=== PATIENT | male | born 1970 | race Caucasian/White ===

== ENCOUNTER 2019-07-06 13:12 | Emergency (ER) | payer BC ==
[2019-07-06] MEDS ORDERED: KETOROLAC 60 MG/2 ML VIAL IM STA (14:41)
--- NOTE | 2019-07-06 14:46 | ED ---
Back Pain HPI - General Chief Complaint: Back Pain/Injury Stated Complaint: back injury Time Seen by Provider: 07/06/19 13:59 Source: patient Limitations: no limitations - History of Present Illness Initial Comments: Patient is a 49-year-old male presenting to emergency Department with complaints of left low back pain that started yesterday. Patient states he was changing his clothes last night when he felt a twinge in his left lower back. Patient states he was able to move around and had minimal pain last night however the pain woke him up in the middle of night and he was spasming. Patient states today he has been having a hard time walking around and cannot bend over or straighten What Cheer a without increased pain. Patient denies fever, chills, numbness and tingling into his lower extremities, bowel or bladder incontinence. Patient states he's had a history of similar pain since just never been this intense. He denies any other traumas or falls recently. He denies history of lumbar surgeries. Upon arrival to the ER, his vital signs are stable. - Related Data Previous Rx's Medication Instructions Recorded Cyclobenzaprine [Flexeril] 5 mg PO BID #15 tablet 07/06/19 predniSONE 20 mg PO BID 5 Days #10 tab 07/06/19 Allergies Allergy/AdvReac Type Severity Reaction Status Date / Time No Known Allergies Allergy Verified 07/06/19 13:34 Review of Systems ROS Statement: Those systems with pertinent positive or pertinent negative responses have been documented in the HPI. ROS Other: All systems not noted in ROS Statement are negative. Past Medical History Past Medical History: No Reported History History of Any Multi-Drug Resistant Organisms: None Reported Past Surgical History: No Surgical Hx Reported Past Psychological History: No Psychological Hx Reported Smoking Status: Never smoker Past Alcohol Use History: Occasional Past Drug Use History: Marijuana General Exam - General Exam Comments Initial Comments: GENERAL: Well-appearing, well-nourished and in no acute distress. HEAD: Atraumatic, normocephalic. EYES: Pupils equal round and reactive to light, extraocular movements intact, sclera anicteric, conjunctiva are normal. ENT: TMs normal, nares patent, oropharynx clear without exudates. Moist mucous membranes. NECK: Normal range of motion, supple without lymphadenopathy or JVD. LUNGS: Breath sounds clear to auscultation bilaterally and equal. No wheezes rales or rhonchi. HEART: Regular rate and rhythm without murmurs, rubs or gallops. ABDOMEN: Soft, nontender, normoactive bowel sounds. No guarding, no rebound. No masses appreciated. : Deferred EXTREMITIES: Normal range of motion, no pitting or edema. No clubbing or cyanosis. Pain with palpation in the left lumbar paraspinals. Increased pain with trunk flexion and extension. Sensation is equal in bilateral lower extremities. Patient has 5 out of 5 strength in his lower extremities. NEUROLOGICAL: Normal speech, normal gait. PSYCH: Normal mood, normal affect. SKIN: Warm, Dry, normal turgor, no rashes or lesions noted. Limitations: no limitations Course Vital Signs 07/06/19 07/06/19 13:32 14:55 Temperature 98.1 F 98.0 F Pulse Rate 84 76 Respiratory 20 19 Rate Blood Pressure 130/90 127/68 O2 Sat by Pulse 99 99 Oximetry Medical Decision Making - Medical Decision Making Patient is a 49-year-old male presenting with left-sided low back pain that started yesterday. Patient was changing his clothes when the symptoms started. He has a history of chronic low back pain. No history of surgeries. He has no red flag symptoms today and on exam. Patient has been taking Motrin for pain and states it helps some. Patient is able to ambulate. Patient will be given Toradol the ER and given a prescription for a muscle relaxer. He is in agreement this plan of care. If symptoms persist patient will follow up with his PCP. Return parameters were discussed with the patient and he verbalized understanding. Disposition Clinical Impression: Strain of lumbar region Disposition: HOME SELF-CARE Condition: Stable Instructions (If sedation given, give patient instructions): Acute Low Back Pain (ED) Additional Instructions: Please return to the Emergency Department if symptoms worsen or any other concerns. Take muscle relaxer as prescribed. He continue with ibuprofen 600 mg every 8 hours. Follow-up with PCP in 1- 2 weeks if symptoms persist. Prescriptions: Cyclobenzaprine [Flexeril] 5 mg PO BID #15 tablet predniSONE 20 mg PO BID 5 Days #10 tab Is patient prescribed a controlled substance at d/c from ED?: No Referrals: Michelle Harding MD [Primary Care Provider] - 1-2 days
[2019-07-06 15:01] VITALS: BP 127/68; PULSE 76; RESP 19; TEMP 98
== END 2019-07-06 14:55 | disposition home or self-care (01) ==
LOC: EC 13:12
DX: S39.012A Strain of muscle, fascia and tendon of lower back, initial encounter (principal); X50.1XXA Overexertion from prolonged static or awkward postures, initial encounter; Y93.89 Activity, other specified
CPT/HCPCS: 99283; 96372; J1885

== ENCOUNTER 2024-03-14 11:01 | Day surgery (SDC) | payer BC ==
[2024-03-09 15:19] VITALS: BMI 25.7
[~2024-03-14 11:01] MED LIST: HYDROmorphone 0.5 MG/0.5 ML SYRINGE IVP PRN; LIDOCAINE 1% (10MG/ML) FOR IV START INTRADERMA PRN; SCOPOLAMINE 1 MG/72 HR PATCH TRANSDERM ONE; droPERidol 5 MG/2 ML VIAL IVP ONE
[2024-03-14] MEDS: IV FLUID CONTINUATION 1,000 ML IV ONE (11:42)
[2024-03-14] MEDS: LACTATED RINGERS 1,000 ML IV SCH (12:08)
[2024-03-14] MEDS: DEXAMETHASONE SOD PHOSPHATE 4 MG/ML 1 ML VIAL IV ONE (12:09)
[2024-03-14] MEDS: ONDANSETRON 4 MG/2 ML VIAL IVP ONE (12:09)
[2024-03-14] MEDS: MIDAZOLAM 2 MG/2 ML VIAL IV ONE (12:26)
[2024-03-14 12:36] LABS: HCT 45.5 % (39.0-53.0); HGB 16.3 gm/dL (13.0-17.5); MCH 32.5 pg (25.0-35.0); MCHC 35.9 g/dL (31.0-37.0); MCV 90.5 fL (80.0-100.0); Platelet Count 254 k/uL (150-450); RBC 5.03 m/uL (4.30-5.90); RDW 12.2 % (11.5-15.5); WBC 4.8 k/uL (3.8-10.6)
[2024-03-14] MEDS: HEPARIN SODIUM,PORCINE 5,000 UNIT/ML 1 ML VIAL SQ PRN (12:40)
--- NOTE | 2024-03-14 12:44 | P.ANPRN ---
Procedure Note - Anesthesia - Nerve Block Performed Bilateral Erector Spinae Single Time Out Performed: Yes Date of Procedure: 03/14/24 Procedure Start Time: 12:08 Procedure Stop Time: 12:15 Location of Patient: PreOp Indication: Acute Post-Operative Pain, Analgesia, Requested by Surgeon Sedation Type: Sedate with meaningful contact maintained Preparation: Sterile Prep Position: Prone Catheter: None Needle Types: Pajunk Needle Gauge: 21 Ultrasound used to visualize needle placement: Yes Ultrasound used to observe medication spread: Yes Injectate: 0.5% Ropivacaine (see comment for volume) (Ropiv 20ml+Decadron 4mg ---Each side. Needle level T11) Blood Aspirated: No Pain Paresthesia on Injection Noted: No Resistance on Injection: Normal Image Stored and Saved: Yes Events: Uneventful and Well Tolerated
[2024-03-14] MEDS ORDERED: NEOSTIGMINE 1 MG/ML 10 ML VIAL ONE (15:18)
[2024-03-14] MEDS ORDERED: DEXAMETHASONE SOD PHOSPHATE 4 MG/ML 1 ML VIAL ONE (15:18)
[2024-03-14] MEDS ORDERED: PROPOFOL 10 MG/ML 20 ML VIAL IV ONE (15:18)
[2024-03-14] MEDS ORDERED: ROCURONIUM 10 MG/ML (5 ML VIAL) IV ONE (15:18)
[2024-03-14] MEDS ORDERED: HYDROmorphone (PF) 1 MG/ML ONE (15:18)
[2024-03-14] MEDS ORDERED: ROPIVACAINE 5 MG/ML 30 ML VIAL ONE (15:18)
[2024-03-14] MEDS ORDERED: fentaNYL (PF) 50 MCG/ML 2 ML AMP ONE (15:18)
[2024-03-14] MEDS ORDERED: GLYCOPYRROLATE 0.2 MG/ML 2 ML VIAL ONE (15:18)
[2024-03-14] MEDS ORDERED: SUCCINYLCHOLINE CHLORIDE 200 MG/10 ML VIAL IV ONE (15:18)
[2024-03-14] MEDS ORDERED: PHENYLEPHRINE-0.9% NACL SYG 1,000 MCG/10 ML SYRINGE ONE (15:18)
[2024-03-14] MEDS ORDERED: ePHEDrine 50 MG/ML 1 ML VIAL ONE (15:18)
[2024-03-14] MEDS ORDERED: LIDOCAINE 1% INJ 10MG/ML (20 ML MDV) ONE (15:18)
[2024-03-14] MEDS: LACTATED RINGERS 1,000 ML IV ONE ×2 (15:40→16:25)
[2024-03-14] MEDS: LIDOCAINE 1%-EPI 1:100,000 20 ML VIAL SQ ONE ×2 (16:24→16:39)
[2024-03-14 17:06] VITALS: TEMP 97
[2024-03-14] MEDS: MEPERIDINE 50 MG/ML SYRINGE IVP STA (17:09)
--- NOTE | 2024-03-14 17:25 | P.OP ---
Date of Procedure: 03/14/24 Preoperative Diagnosis: Right Inguinal Hernia Postoperative Diagnosis: Right Inguinal Hernia Procedure(s) Performed: Robotic Right Inguinal Hernia Repair with Mesh Anesthesia: MAC Surgeon: Dougie Pablo Estimated Blood Loss (ml): 10 Pathology: none sent Condition: stable Disposition: PACU Description of Procedure: The patient was gonzalez to the operating suite and placed in supine position. Endotracheal intubation was performed and anesthesia was given. A timeout was performed before starting the procedure. An #11 blade was used to make an incision at [place] point and additional 8 mm working robotic trochars were placed. The 5 mm port was exchanged for a 12 mm port. The robot was then docked and the rest of the procedure was performed from the console. I Measured and marked a point superior to the hernia defect using two lengths of the Cadiere forceps to approximate a 4 to 5 cm distance. From this rachana, move laterally along a horizontal line to the level of the anterior superior iliac spine and create another rachana to note the lateral margin of the peritoneal flap. Incise the peritoneum at the second rachana and continue medially through the first rachana toward the medial umbilical ligament. Continue the peritoneal incision inferiorly along the medial umbilical ligament to the level of the hernia defect to aid in pocket visualization and mesh placement. I created a flap and mesh pocket dissection. I Stayed in the plane between the peritoneum and transversalis fascia during peritoneal flap and mesh pocket creation to remain within an avascular plane and avoid the nerves associated with the triangle of pain. Once the full length of the flap had been developed to a depth of 1 to 2 cm, begin the mesh pocket dissection behind the rectus muscle and carry downward to the level of the pubic bone. Develop the medial portion of the pocket from the pubic tubercle to the iliac vessels. I Moved to the lateral dissection and develop the pocket there as well. Lastly, I performed the central dissection by releasing the peritoneum from the spermatic cord/round ligament and associated structures. I Released these structures with cranial and anterior reflection of the peritoneum while sweeping the structures inferiorly towards the body wall, staying close to the peritoneum with the dissection plane. This released the sac from the hernia defect. I Reduce a cord lipoma into the abdomen. I then closed the flap with #2-0 V Lock Suture. At this point. the robot was undocked and the ports were removed. Incisions were closed with #4-0 monocryl suture. The patient tolerated the procedure well and was sent to PACU in stable condition.
[2024-03-14 18:05] VITALS: RESP 20
[2024-03-14] MEDS: HYDROcodone/APAP 7.5-325MG 1 EACH TAB PO ONE (18:13)
[2024-03-14 19:03] VITALS: BP 127/70; PULSE 90
== END 2024-03-14 19:34 | disposition home or self-care (01) ==
LOC: OR 11:01
PROVIDERS: ATTEND Surgery
DX: K40.90 Unilateral inguinal hernia, without obstruction or gangrene, not specified as recurrent
CPT/HCPCS: 49650; 64999; 85027; S2900